=== PATIENT | male | born 1940 | race Caucasian/White ===

== ENCOUNTER 2016-10-08 16:24 | Emergency (ER) | payer OTHER, MEDICARE ==
[~2016-10-08] VITALS: Ht 167.6 cm; Wt 81.5 kg
[2016-10-08 21:23] VITALS: BP 133/68
== END 2016-10-08 21:24 | disposition home or self-care (01) ==
LOC: EME 16:24
DX: S01.111A Laceration without foreign body of right eyelid and periocular area, initial encounter (principal); S09.8XXA Other specified injuries of head, initial encounter; W01.198A Fall on same level from slipping, tripping and stumbling with subsequent striking against other object, initial encounter; Z23 Encounter for immunization; Z87.891 Personal history of nicotine dependence
CPT/HCPCS: 70450; 70486; 99281; 99284

== ENCOUNTER 2017-07-11 21:52 | Inpatient (IN) | payer OTHER, MEDICARE ==
[~2017-07-11] VITALS: Ht 167.6 cm; Wt 82.8 kg
[~2017-07-11 21:52] MED LIST: ALEVE220 MG PO; CHILDREN'S ASPI81 M1 PO; COZAAR100 MG PO; CYANOCOBALAM1000 MCG PO; EXCEDRIN EXTRA1 EACH PO; LIPITOR80 MG PO; MULTIPLE VITAM1 EAC1 PO; PEPCID AC20 MG PO; PREDNISONE10 MG PO; PROCARDIA XL60 MG PO; PROTONIX40 MG PO; TOPROL XL50 MG PO
[2017-07-12] VITALS (11 sets, daily range): BP systolic 144–198; BP diastolic 67–91
[2017-07-12] MEDS ORDERED: HYDROCODON-ACE1 EAC7 PO (16:49)
[2017-07-13] VITALS (13 sets, daily range): BP systolic 132–184; BP diastolic 64–99
== END 2017-07-13 17:09 | disposition home or self-care (01) | DRG 39 ==
LOC: ENRESERV 21:52 → 2SOUTH 07-12 08:58 → EDSTATUS 07-12 12:34 → 2SOUTH 07-12 12:34 → ENRESERV 07-12 14:37 → SDC 07-12 15:39 → 4WEST 07-12 15:50
DX: I63.132 Cerebral infarction due to embolism of left carotid artery (principal); I10 Essential (primary) hypertension; E78.5 Hyperlipidemia, unspecified; R47.01 Aphasia; I25.10 Atherosclerotic heart disease of native coronary artery without angina pectoris; Z87.891 Personal history of nicotine dependence; Z86.79 Personal history of other diseases of the circulatory system; Z80.42 Family history of malignant neoplasm of prostate; Z79.82 Long term (current) use of aspirin
CPT/HCPCS: 87641; 93005; 94799; C1768; J0360; J0690; J1170; J1644; J1650; J2250; J2405; J2720; J2795; J7120; J7512

== ENCOUNTER 2017-08-27 10:54 | Emergency (ER) | payer OTHER, MEDICARE ==
[~2017-08-27] VITALS: Ht 167.6 cm; Wt 81.9 kg
[~2017-08-27 10:54] MED LIST changes: +HYDROCODON-ACE1 EAC7 PO
[2017-08-27 11:29] LABS: HEMATOCRIT 41.4 % (38.0-50.0); HEMOGLOBIN 14.4 G/DL (12.5-16.6); MCH 34.8 PG (29.0-34.0); MCHC 34.8 G/DL (30.0-36.0); PLATELET COUNT 231 K/uL (156-360); RBC DIS.WIDTH-CV 12.4 % (11.8-14.6); RBC DIS.WIDTH-SD 46.5 % (39-53); RED BLOOD COUNT 4.14 M/uL (4.00-5.50); WHITE BLOOD COUNT 8.7 K/uL (4.1-10.2)
[2017-08-27 11:52] LABS: INTER. NORMALIZED RATIO 0.9
[2017-08-27 11:55] LABS: PTT 24.5 SEC (25-37)
[2017-08-27 11:58] LABS: CHLORIDE 105 mEq/L (99-109); POTASSIUM 4.9 mEq/L (3.7-5.4); SODIUM 137 mEq/L (136-147)
[2017-08-27 12:00] LABS: GLUCOSE 103 mg/dL (70-99)
[2017-08-27 12:04] LABS: CREATININE 1.1 mg/dL (0.6-1.3); GFR ESTIMATE (CALCULATED) > 59 mL/min/ (58.99-99999)
[2017-08-27 12:05] LABS: TROP-I INTERPRETATION NEGATIVE; TROPONIN-I < 0.01 ng/mL (0.0-0.30); UREA NITROGEN (BUN) 27 mg/dL (9-23)
[2017-08-27 12:50] VITALS: BP 116/56
== END 2017-08-27 13:10 | disposition home or self-care (01) ==
LOC: EME 10:54
PROVIDERS: Emergency Medicine Emergency Medical Services
DX: R53.1 Weakness (principal); G70.00 Myasthenia gravis without (acute) exacerbation; Z86.73 Personal history of transient ischemic attack (TIA), and cerebral infarction without residual deficits; I10 Essential (primary) hypertension; E78.5 Hyperlipidemia, unspecified; Z79.82 Long term (current) use of aspirin; Z87.891 Personal history of nicotine dependence
CPT/HCPCS: 70450; 70496; 70498; 71046; 80048; 83880; 84484; 85027; 85610; 85730; 93005; 99281; 99285; J7040